=== PATIENT | female | born 1990 | race Caucasian/White ===

== ENCOUNTER → 2017-11-06 | Outpatient (CLI) | payer SELFPAY ==
[~2017-11-06] MED LIST: DIPH50 PO; MULVITMINE PO; NAPR500 PO
[2017-11-07 13:36] LABS: Source CERVICAL
== END ==
LOC: LAB 17:36
PROVIDERS: Registered Nurse Community Health
DX: Z12.4 Encounter for screening for malignant neoplasm of cervix (principal)
CPT/HCPCS: G0123

== ENCOUNTER → 2019-03-02 | Outpatient (CLI) | payer SELFPAY ==
[~2019-03-02] MED LIST changes: +ONDA4ODT MM
== END ==
LOC: LAB 11:58 → LAB SHORT 11:58
DX: N92.0 Excessive and frequent menstruation with regular cycle (principal)
CPT/HCPCS: 84703

== ENCOUNTER 2021-10-25 23:17 | Emergency (ER) | payer OTHER ==
[~2021-10-25] VITALS: Ht 157.5 cm; Wt 74.8 kg
[2021-10-25] MEDS ORDERED: AMOCLA875 PO (23:58)
[2021-10-25] MEDS ORDERED: IBUP600 PO (23:58)
== END 2021-10-26 00:18 | disposition home or self-care (01) ==
LOC: ER 23:17
DX: S61.236A Puncture wound without foreign body of right little finger without damage to nail, initial encounter (principal); F17.210 Nicotine dependence, cigarettes, uncomplicated; W54.0XXA Bitten by dog, initial encounter
CPT/HCPCS: 73120; 99283-25; A9270